=== PATIENT | female | born 1945 | race Two or more races ===

== ENCOUNTER 2017-07-06 16:21 | Inpatient (IN) | payer MEDICAID ==
[~2017-07-06] VITALS: Ht 162.6 cm; Wt 56.9 kg
--- NOTE | 2017-07-06 16:27 | NUR ---
EVERT FROM HOME DT ALTERED MENTAL STATUS. PATIENT RECEIVED AWAKE AND ALERT. APPEARS IN NO DISTRESS. RESPIRATION EVEN AND UNLABORED. PATIENT ABLE TO VERBALLY RESPONSIVE HOWEVER PATIENT RESPONDS SLOW. PATIENT REMAINS LETHRGIC. PER PT SHE HAS 1 WPIODE OF VOMITTING AND FELT DIZZY APPROXIMATELY 1.5 HR AGO. PATIENT IS SATING WELL ON ROOM AIR, AFEBRILE. VSS. GOWNED PT AND PLACED ON TELE MONITOR, PENDING EVALUATUION
[2017-07-06] MEDS ORDERED: ONDANSETRON HCL/PF 4 MG/2 ML VIAL ONE (16:45)
--- NOTE | 2017-07-06 16:53 | NUR ---
URINE SAMPLE COLECTED AND SENT TO LAB
[2017-07-06] MEDS ORDERED: ONDANSETRON HCL/PF 4 MG/2 ML VIAL IVP ONE (17:00)
[2017-07-06 17:20] LABS: BASOPHILS % (AUTO) 0.1 % (0.0-2.0); EOSINOPHILS % (AUTO) 0.1 % (0.0-6.0); HEMATOCRIT 40 % (33-45); HEMOGLOBIN 13.5 g/dL (11.5-14.8); LYMPHOCYTES # (AUTO) 0.6 /CMM (0.8-4.8); LYMPHOCYTES % (AUTO) 2.8 % (20.0-44.0); MEAN CORPUSCULAR HEMOGLOBIN 30 PG (26.0-33.0); MEAN CORPUSCULAR HGB CONC 34 g/dl (31.0-36.0); MEAN CORPUSCULAR VOLUME 88 fL (82-100); MONOCYTES # (AUTO) 0.5 /CMM (0.1-1.30); MONOCYTES % (AUTO) 2.5 % (2.0-12.0); NEUTROPHILS # (AUTO) 19.2 /CMM (1.8-8.9); NEUTROPHILS % (AUTO) 94.5 % (43.0-81.0); PLATELET COUNT (AUTO) 230 /CMM (150-450); RDW COEFFICIENT OF VARIATION 12.1 (11.5-15.0); RED BLOOD CELL COUNT(AUTO) 4.56 MIL/uL (4.0-5.2); WHITE BLOOD COUNT (AUTO) 20.3 K/uL (4.3-11.0)
[2017-07-06 17:22] LABS: APPEARANCE,URINE SL CLOUDY (CLEAR); BILIRUBIN,URINE NEGATIVE (NEGATIVE); BLOOD, URINE 2+ Ery/uL (NEGATIVE); COLOR,URINE YELLOW (YELLOW); KETONES,URINE TRACE (NEGATIVE); LEUKOCYTE ESTERASE ,URINE NEGATIVE (NEGATIVE); NITRITE, URINE POSITIVE (NEGATIVE); PH,URINE 7.5 (5.0-8.0); PROTEIN,URINE 2+ mg/dl (NEGATIVE); UGLUCOSE 1+ mg/dL (NEGATIVE)
[2017-07-06 17:30] LABS: BACTERIA,URINE Many /HPF (None Seen)
[2017-07-06 17:31] LABS: SQUAMOUS EPITHELIAL CELL,UR Few /HPF (None Seen)
[2017-07-06 17:36] LABS: CARBON DIOXIDE 27 mmol/L (21-32); CHLORIDE 97 mmol/L (98-107); CREATININE 1.8 mg/dL (0.6-1.3); GLUCOSE 209 mg/dL (74-106); POTASSIUM 3.5 mmol/L (3.5-5.1); SODIUM SERUM 132 mmol/L (136-145); UREA NITROGEN, BLOOD 25 mg/dL (7-18)
[2017-07-06 17:43] LABS: ALANINE AMINOTRANSFERASE 46 U/L (12-78); ALBUMIN 3.6 g/dL (3.4-5.0); ALKALINE PHOSPHATASE 94 U/L (46-116); ASPARTATE AMINOTRANSFERASE 36 U/L (15-37); BILIRUBIN,DIRECT 0.4 mg/dL (0.0-0.2); BILIRUBIN,TOTAL 1.1 mg/dL (0.2-1.0); LIPASE 149 U/L (73-393)
[2017-07-06 17:58] LABS: BAND % (MANUAL) 14 % (0.0-5.0); LYMPHOCYTES % (MANUAL) 4 % (16-48); MONOCYTES % (MANUAL) 7 % (0-11.0); NEUTROPHILS % (MANUAL) 75 (42-76)
--- NOTE | 2017-07-06 18:21 | NUR ---
Patient is resting comfortably in bed with eyes closed. Easily aroused. VSS
[2017-07-06] MEDS ORDERED: PIPERACILLIN /TAZOBACTAM 2.25 G in IV D5W 50 ML IV ONE (18:30)
--- NOTE | 2017-07-06 18:30 | NUR ---
CALLED PHARMACY FOR HELEN
[2017-07-06 18:47] LABS: INR 0.97 (0.87-1.13)
--- NOTE | 2017-07-06 18:47 | NUR ---
CALLED NURSING SUP. FOR MS BED
--- NOTE | 2017-07-06 18:50 | NUR ---
BARBARA JOHNSOND, ELENA CARRILLO NP [employer] OPERATOR
--- NOTE | 2017-07-06 19:01 | NUR ---
EPIC PAGED, NCQA SPECIALIST
--- NOTE | 2017-07-06 19:10 | NUR ---
CLINICAL BIOSTATISTICIAN AT BEDSIDE FOR BLOOD CULTURE DRAW.
--- NOTE | 2017-07-06 19:13 | NUR ---
Patient is resting comfortably in bed with eyes closed. Easily aroused. VSS. REPORT GIVEN TO PM NURSES FOR MONIKA
[2017-07-06] MEDS ORDERED: METF500T4 PO (19:16)
[2017-07-06] MEDS ORDERED: GLYB5TAB7 PO (19:16)
[2017-07-06] MEDS ORDERED: CLON0.1T PO (19:16)
[2017-07-06] MEDS ORDERED: LOSA50TA21 PO (19:16)
--- NOTE | 2017-07-06 19:21 | NUR ---
RECEIVED REPORT FROM AM SHIFT RN ERIC. PT RESTING IN BED QUIETLY, NO ACUTE DISTRESS NOTED, RESP EVEN AND UNLABORED. PT DENIES PAIN OR DISCOMFORT AT THIS TIME. PT VERBALIZE RELIEF OF N/V. CALL MATTHEW DE LA CRUZ. WILL CONTINUE TO MONITOR PT CLOSELY.
[2017-07-06] MEDS ORDERED: Z GUARD REMEDY 2 OZ OINT TP PRN (19:30)
[2017-07-06] MEDS ORDERED: ZOLPIDEM TARTRATE 5 MG TABLET PO PRN (19:30)
[2017-07-06] MEDS ORDERED: HYDROCODONE/APAP 5/325MG 1 EACH TABLET PO PRN (19:30)
[2017-07-06] MEDS ORDERED: ONDANSETRON HCL/PF 4 MG/2 ML VIAL IVP PRN (19:30)
[2017-07-06] MEDS ORDERED: ACETAMINOPHEN 325 MG TABLET PO PRN (19:30)
[2017-07-06] MEDS ORDERED: ENOXAPARIN SODIUM 40 MG/0.4 ML DISP.SYRIN SQ SCH (19:30)
[2017-07-06] MEDS ORDERED: MAG HYDROX/AL HYDROX/SIMETH 30 ML UDC PO PRN (19:30)
[2017-07-06] MEDS ORDERED: MAGNESIUM HYDROXIDE 30 ML UDC PO PRN (19:30)
--- NOTE | 2017-07-06 19:39 | NUR ---
CALLED NURSING SUP. FOR TELE BED
--- NOTE | 2017-07-06 20:03 | NUR ---
REPORT CALLED TO [facility]. WILL TRANSPORT PT VIA ACLS PROTOCOL.
[2017-07-06 20:30] VITALS: BP 100/61
--- NOTE | 2017-07-06 20:30 | NUR ---
telecom assistant note received patient awake alert and oriented. Patient denies any pain or discomfort at this time. IV site intact with no redness noted. Skin intact, with no breakdown or bruising noted. All belongings checked and accounted for. Oriented patient to room and to unit. Waiting for md orders. Bed locked and in lowest position. Side rails up, call light within reach. Will continue to monitor.
[2017-07-06] MEDS: IV NS 0.9% 1,000 ML IV PRN (20:48)
[2017-07-06] MEDS: ENOXAPARIN SODIUM 30 MG/0.3 ML DISP.SYRIN SQ SCH (20:49)
[2017-07-06] MEDS ORDERED: PIPERACILLIN /TAZOBACTAM 4.5 G in IV D5W 50 ML IV SCH (21:00)
[2017-07-06] MEDS ORDERED: ALBUTEROL FS 2.5 MG/3 ML VIAL.NEB NEB PRN (22:30)
[2017-07-06] MEDS ORDERED: hydrALAZINE HCL 25 MG TABLET PO PRN (22:30)
[2017-07-06] MEDS ORDERED: DEXTROSE 50%-WATER 50 ML DISP.SYRIN IV PRN (22:30)
[2017-07-06] MEDS: BLOOD SUGAR DIAGNOSTIC 1 EACH STRIP IN SCH (23:47)
[2017-07-06] MEDS: PIPERACILLIN /TAZOBACTAM 2.25 G in IV D5W 50 ML IV SCH (23:47)
[2017-07-07] VITALS: BP 98/53
[2017-07-07 04:00] VITALS: BP 100/56
[2017-07-07] MEDS: PIPERACILLIN /TAZOBACTAM 2.25 G in IV D5W 50 ML IV SCH ×4 (05:26→23:37)
--- NOTE | 2017-07-07 06:10 | NUR ---
telecommunications line mechanic note patient stable. Blood sugar 92. no coverage needed. all needs met and attended to. will endorse to day shift for eloisa.
[2017-07-07 06:42] LABS: BASOPHILS % (AUTO) 0.2 % (0.0-2.0); EOSINOPHILS # (AUTO) 0.1 /CMM (0.0-0.7); EOSINOPHILS % (AUTO) 0.6 % (0.0-6.0); HEMATOCRIT 34 % (33-45); HEMOGLOBIN 11.8 g/dL (11.5-14.8); LYMPHOCYTES # (AUTO) 2.1 /CMM (0.8-4.8); LYMPHOCYTES % (AUTO) 10.9 % (20.0-44.0); MEAN CORPUSCULAR HEMOGLOBIN 30 PG (26.0-33.0); MEAN CORPUSCULAR HGB CONC 34 g/dl (31.0-36.0); MEAN CORPUSCULAR VOLUME 88 fL (82-100); MONOCYTES # (AUTO) 1.1 /CMM (0.1-1.30); MONOCYTES % (AUTO) 5.8 % (2.0-12.0); NEUTROPHILS % (AUTO) 82.5 % (43.0-81.0); PLATELET COUNT (AUTO) 203 /CMM (150-450); RDW COEFFICIENT OF VARIATION 12.7 (11.5-15.0); WHITE BLOOD COUNT (AUTO) 19.4 K/uL (4.3-11.0)
[2017-07-07 06:51] LABS: CALCIUM, SERUM 8.8 mg/dL (8.5-10.1); CARBON DIOXIDE 24 mmol/L (21-32); CHLORIDE 103 mmol/L (98-107); CREATININE 2.2 mg/dL (0.6-1.3); GLUCOSE 59 mg/dL (74-106); MAGNESIUM 1.9 mg/dL (1.8-2.4); PHOSPHORUS 4.2 mg/dL (2.5-4.9); POTASSIUM 3.8 mmol/L (3.5-5.1); SODIUM SERUM 137 mmol/L (136-145); UREA NITROGEN, BLOOD 29 mg/dL (7-18)
[2017-07-07 06:54] LABS: CHOLESTEROL 157 mg/dL (<200); HDL CHOLESTEROL 57 mg/dL (40-60); LDL 90 mg/dL (0-99); TRIGLYCERIDES 122 mg/dL (30-150)
[2017-07-07 08:00] VITALS: BP 124/59
[2017-07-07] MEDS: BLOOD SUGAR DIAGNOSTIC 1 EACH STRIP IN SCH ×4 (09:17→22:07)
[2017-07-07] MEDS: CLONIDINE HCL 0.1 MG TABLET PO SCH ×2 (09:17→17:43)
--- NOTE | 2017-07-07 10:00 | NUR ---
SHAMEKA PEREZ NP IN.
[2017-07-07] MEDS: IV NS 0.9% 1,000 ML IV PRN ×2 (10:48→23:37)
--- NOTE | 2017-07-07 14:30 | NUR ---
US OF KIDNEYS DONE,URINE SENT PER Lavell HENNING ORDERS.PT. UP TO VOID FREQ.
[2017-07-07 16:00] VITALS: BP 138/71
--- NOTE | 2017-07-07 18:30 | NUR ---
NO CHANGE IN STATUS.
[2017-07-07 18:37] LABS: CREATININE, URINE 40.5 MG/DL (30.0-125.0)
--- NOTE | 2017-07-07 19:45 | NUR ---
MSRN ASSISTED TO RESTROOM, VOIDED FREELY. HFR, DIZZY ON/OFF. SAFETY PRECAUTIONS EMPHASIZED, WELL UNDERSTOOD. ALL NEEDS MET.
[2017-07-07 20:26] VITALS: BP 116/58
[2017-07-07] MEDS: ENOXAPARIN SODIUM 30 MG/0.3 ML DISP.SYRIN SQ SCH (22:07)
[2017-07-07] MEDS: INSULIN REGULAR, HUMAN 100 UNIT/ML 3 ML VIAL SQ PRN (22:08)
--- NOTE | 2017-07-07 23:30 | NUR ---
ZITA Weller WAKENED, DENIES ANY DISCOMFORTS. PRESENT IVF INFUSING WELL.
--- NOTE | 2017-07-08 04:17 | NUR ---
MSRN SLEEPING APPEARS COMFORTABLE
--- NOTE | 2017-07-08 06:00 | NUR ---
MSRN ORTHOSTATIC BP LYING 131/67 HR OF 69, SITTING BP 123/65 , HR OF 77, STANDING BP 144/62 HR OF 80. BS 92, NO COVERAGE
[2017-07-08] MEDS: PIPERACILLIN /TAZOBACTAM 2.25 G in IV D5W 50 ML IV SCH ×3 (06:24→17:49)
[2017-07-08 06:27] VITALS: BP 131/67
[2017-07-08 06:28] VITALS: BP_SYST 123; BP_SYST 144; BP_DIAS 62; BP_DIAS 65
[2017-07-08] MEDS: BLOOD SUGAR DIAGNOSTIC 1 EACH STRIP IN SCH ×4 (06:49→22:00)
[2017-07-08 08:00] VITALS: BP 123/65
--- NOTE | 2017-07-08 08:00 | NUR ---
m/s general forecaster: initial assessment received pt in bed awake, a/ox4. no c/o dysuria. pt voiding well. instructed to call for assistance. will continue to monitor.
[2017-07-08 08:15] LABS: BASOPHILS % (AUTO) 0.3 % (0.0-2.0); EOSINOPHILS # (AUTO) 0.1 /CMM (0.0-0.7); EOSINOPHILS % (AUTO) 0.8 % (0.0-6.0); HEMATOCRIT 34 % (33-45); HEMOGLOBIN 11.5 g/dL (11.5-14.8); LYMPHOCYTES # (AUTO) 1.4 /CMM (0.8-4.8); LYMPHOCYTES % (AUTO) 12.5 % (20.0-44.0); MEAN CORPUSCULAR HEMOGLOBIN 30 PG (26.0-33.0); MEAN CORPUSCULAR HGB CONC 34 g/dl (31.0-36.0); MEAN CORPUSCULAR VOLUME 88 fL (82-100); MONOCYTES # (AUTO) 1.1 /CMM (0.1-1.30); MONOCYTES % (AUTO) 9.8 % (2.0-12.0); NEUTROPHILS # (AUTO) 8.7 /CMM (1.8-8.9); NEUTROPHILS % (AUTO) 76.6 % (43.0-81.0); PLATELET COUNT (AUTO) 184 /CMM (150-450); RDW COEFFICIENT OF VARIATION 11.5 (11.5-15.0); RED BLOOD CELL COUNT(AUTO) 3.82 MIL/uL (4.0-5.2); WHITE BLOOD COUNT (AUTO) 11.3 K/uL (4.3-11.0)
[2017-07-08 08:36] LABS: CALCIUM, SERUM 8.3 mg/dL (8.5-10.1); CARBON DIOXIDE 25 mmol/L (21-32); CHLORIDE 101 mmol/L (98-107); CREATININE 1.5 mg/dL (0.6-1.3); GLUCOSE 92 mg/dL (74-106); MAGNESIUM 1.8 mg/dL (1.8-2.4); PHOSPHORUS 2.6 mg/dL (2.5-4.9); POTASSIUM 3.6 mmol/L (3.5-5.1); SODIUM SERUM 136 mmol/L (136-145); UREA NITROGEN, BLOOD 18 mg/dL (7-18)
[2017-07-08] MEDS: CLONIDINE HCL 0.1 MG TABLET PO SCH ×2 (08:48→16:48)
--- NOTE | 2017-07-08 10:00 | NUR ---
m/s supervisor fish bait processing: notes resting comfortable in bed. continue on ivf, infusing well. will continue to monitor.
--- NOTE | 2017-07-08 12:00 | NUR ---
m/s steel rigger: nephro f/u seen by dr. guidry at this time. lunch served. hob elevated. will continue to monitor.
[2017-07-08] MEDS: IV NS 0.9% 1,000 ML IV PRN (12:05)
[2017-07-08] MEDS: INSULIN REGULAR, HUMAN 100 UNIT/ML 3 ML VIAL SQ PRN ×3 (12:09→23:25)
--- NOTE | 2017-07-08 13:00 | NUR ---
m/s automatic machines supervisor: md visit seen and examined by dr. wetzel at this time.
--- NOTE | 2017-07-08 15:00 | NUR ---
m/s pool hall inspector: notes resting comfortable in bed with no distress noted. will continue to monitor.
[2017-07-08 16:00] VITALS: BP 133/62
--- NOTE | 2017-07-08 19:00 | NUR ---
m/s furniture servicer: notes pt in bed sounds asleep. needs attended. no apparent distress noted. will continue to monitor.
[2017-07-08 20:00] VITALS: BP 112/58
--- NOTE | 2017-07-08 20:00 | NUR ---
MS/BASE REMOVER; RECEIVED PT IN BED AWAKE TALKING ON HER CELL PHONE. BREATHING NON LABORED. DENIES PAIN. IVF ON PROGRESS. BED ON LOWER POSITION AND LOCKED FOR SAFETY. SIDE RAILS X 2 ARE UP FOR SAFETY. CONTINUE TO MONITOR. CALL LIGHT WITHIN REACH.
[2017-07-08] MEDS: ENOXAPARIN SODIUM 30 MG/0.3 ML DISP.SYRIN SQ SCH (21:25)
--- NOTE | 2017-07-08 22:00 | NUR ---
MS/PROFESSOR OF ENGLISH; BS 139 COVERAGE NOT GIVEN PT SAID I AM NOT TAKING INSULIN.
[2017-07-09] MEDS: PIPERACILLIN /TAZOBACTAM 2.25 G in IV D5W 50 ML IV SCH ×3 (00:02→12:06)
[2017-07-09] MEDS: IV NS 0.9% 1,000 ML IV PRN (02:19)
[2017-07-09 04:00] VITALS: BP_SYST 132; BP_SYST 133; BP_SYST 138; BP_DIAS 66; BP_DIAS 74; BP_DIAS 76
[2017-07-09] MEDS: BLOOD SUGAR DIAGNOSTIC 1 EACH STRIP IN SCH ×3 (05:46→17:30)
--- NOTE | 2017-07-09 05:50 | NUR ---
MS/EQUIPMENT PROCESSER STORAGE; BS 121 NO COVERAGE GIVEN.
--- NOTE | 2017-07-09 07:15 | NUR ---
MS/FARMWORKER POULTRY; SLEPT FAIRLY. IVF ON PROGRESS. DENIES PAIN. WILL ENDORSE TO THE DAY SHIFT RN FOR CONTINUITY OF CARE.
--- NOTE | 2017-07-09 07:20 | NUR ---
RN NOTES: PATIENT RESTING IN BED. NONLABORED BREATHING NOTED. PATIENT AOX3. PATIENT COMPLAINING OF DIZZINESS,STATING THAT SHE NEEDS A SNACK. BLOOD SUGAR WNL. PATIENT GIVEN JUICE AND CRACKERS. BED IN LOWEST LOCKED POSITION. CALL LIGHT WITHIN REACH. WILL CONTINUE TO MONITOR
[2017-07-09 07:53] LABS: BASOPHILS % (AUTO) 0.3 % (0.0-2.0); EOSINOPHILS # (AUTO) 0.1 /CMM (0.0-0.7); EOSINOPHILS % (AUTO) 1.1 % (0.0-6.0); HEMATOCRIT 33 % (33-45); HEMOGLOBIN 11.2 g/dL (11.5-14.8); LYMPHOCYTES # (AUTO) 1.3 /CMM (0.8-4.8); LYMPHOCYTES % (AUTO) 15.7 % (20.0-44.0); MEAN CORPUSCULAR HEMOGLOBIN 30 PG (26.0-33.0); MEAN CORPUSCULAR HGB CONC 34 g/dl (31.0-36.0); MEAN CORPUSCULAR VOLUME 88 fL (82-100); MONOCYTES # (AUTO) 0.9 /CMM (0.1-1.30); MONOCYTES % (AUTO) 10.8 % (2.0-12.0); NEUTROPHILS # (AUTO) 5.9 /CMM (1.8-8.9); NEUTROPHILS % (AUTO) 72.1 % (43.0-81.0); PLATELET COUNT (AUTO) 182 /CMM (150-450); RDW COEFFICIENT OF VARIATION 12.1 (11.5-15.0); RED BLOOD CELL COUNT(AUTO) 3.73 MIL/uL (4.0-5.2); WHITE BLOOD COUNT (AUTO) 8.1 K/uL (4.3-11.0)
--- NOTE | 2017-07-09 08:00 | NUR ---
MS RN RECEIVED ON BED, AWAKE,ALERT,ORIENTED X3,NOT IN ANY FORM OF DISTRESS, RESPIRATIONS EVEN AND UNLABORED,NO SOB NOTED, LUNGS ARE CLEAR,ABDOMEN SOFT, POSITIVE BOWEL SOUNDS, DENIES PAIN AT THIS TIME, WILL MONITOR PATIENT'S CONDITION, WILL MONITOR PATIENT.
[2017-07-09 08:34] LABS: CALCIUM, SERUM 8.7 mg/dL (8.5-10.1); CARBON DIOXIDE 22 mmol/L (21-32); CHLORIDE 103 mmol/L (98-107); CREATININE 1.5 mg/dL (0.6-1.3); GLUCOSE 114 mg/dL (74-106); MAGNESIUM 1.7 mg/dL (1.8-2.4); PHOSPHORUS 2.6 mg/dL (2.5-4.9); POTASSIUM 3.8 mmol/L (3.5-5.1); SODIUM SERUM 135 mmol/L (136-145); UREA NITROGEN, BLOOD 15 mg/dL (7-18)
--- NOTE | 2017-07-09 09:00 | NUR ---
MS LAG[place] BREAKFAST SERVED,DUE MEDS GIVEN,TOLERATED WELL.
[2017-07-09] MEDS: CLONIDINE HCL 0.1 MG TABLET PO SCH ×2 (09:23→17:00)
--- NOTE | 2017-07-09 11:10 | NUR ---
ms rn was seen by bere, with order to go home today w/ orders.
--- NOTE | 2017-07-09 12:00 | NUR ---
ms rn bs -[id number], refused coverage.
[2017-07-09] MEDS: Magnesium 1GM/D5W 100ML PREMIX 100 ML IV SCH ×2 (12:06→13:13)
[2017-07-09] MEDS ORDERED: LEVO500T75 PO (13:06)
[2017-07-09 16:00] VITALS: BP 130/72
--- NOTE | 2017-07-09 16:33 | NUR ---
ms rn on bed, no distress noted.
[2017-07-09 17:00] VITALS: BP 135/75
--- NOTE | 2017-07-09 17:30 | NUR ---
ms rn patient went home accompanied w/ friend,prescription of levaquin given.no distress noted,all needs attended.
== END 2017-07-09 18:30 | disposition home or self-care (01) | DRG 720 ==
LOC: ER 16:23 → TELE 20:02 → MED 07-07 10:41
PROVIDERS: ADMIT Internal Medicine; ATTEND Internal Medicine
DX: A41.9 Sepsis, unspecified organism (principal); N17.0 Acute kidney failure with tubular necrosis; J18.9 Pneumonia, unspecified organism; I95.9 Hypotension, unspecified; E11.22 Type 2 diabetes mellitus with diabetic chronic kidney disease; E11.9 Type 2 diabetes mellitus without complications; D63.8 Anemia in other chronic diseases classified elsewhere; E87.1 Hypo-osmolality and hyponatremia; N10 Acute pyelonephritis; E86.1 Hypovolemia; I10 Essential (primary) hypertension; E78.5 Hyperlipidemia, unspecified; Z90.49 Acquired absence of other specified parts of digestive tract; Z79.84 Long term (current) use of oral hypoglycemic drugs; N18.9 Chronic kidney disease, unspecified; K80.20 Calculus of gallbladder without cholecystitis without obstruction; I12.9 Hypertensive chronic kidney disease with stage 1 through stage 4 chronic kidney disease, or unspecified chronic kidney disease; E83.42 Hypomagnesemia; Z79.899 Other long term (current) drug therapy; B96.20 Unspecified Escherichia coli [E. coli] as the cause of diseases classified elsewhere
CPT/HCPCS: 36415; 71045-TC; 76705-TC; 76770-TC; 80048-TC; 80061-TC; 80076-TC; 81000-TC; 82570-TC; 82962-TC; 83605-TC; 83690-TC; 83735-TC; 84100-TC; 84300-TC; 85025-TC; 85730-TC; 87040-TC; 87081-TC; 87086-TC; 87186-TC; A4606; J1650; J1815; J2405; J2543; J3475; J7030; J7060; Z7610